=== PATIENT | male | born 1970 | race Caucasian/White ===

== ENCOUNTER → 2019-06-16 09:09 | Outpatient (CLI) | payer OTHER, SELFPAY ==
--- NOTE | 2019-06-16 | DI.RAD.S_ITS ---
PROCEDURE: FL SHOULDER INJECTION MR/CT LT INDICATIONS: Possible tear TECHNIQUE: The indications, alternatives, benefits, risks, and complications of the procedure were explained to the patient. Written informed consent was obtained and placed in the chart. The shoulder was examined fluoroscopically and a site for needle placement chosen for entry into the glenohumeral joint from an anterior approach. The skin was prepped and draped in a sterile fashion, and 1% lidocaine infiltrated from skin down to joint capsule. A spinal needle was inserted into the glenohumeral joint, and a small amount of iodinated contrast media injected to confirm intra-articular placement of the needle tip. This was followed by approximately 10 mL dilute solution of a gadolinium containing MR contrast agent. The needle was removed and a dressing was applied. The patient was given postprocedural instructions and sent to the MR suite for MR imaging. FINDINGS: A single fluoroscopic spot image demonstrates intra-articular location of injected iodinated contrast. IMPRESSION: Successful fluoroscopically guided administration of dilute Gadolinium solution into the left shoulder joint for MR arthrogram. Dictated by: Raman Stahl M.D. on 06/16/2019 at 13:35 Approved by: Raman Stahl M.D. on 06/16/2019 at 13:36
--- NOTE | 2019-06-16 | DI.MRI.S_ITS ---
PROCEDURE: MR SHOULDER LT W CON INDICATIONS: Possible tear TECHNIQUE: After the administration of 12 mL of dilute intra-articular Gadolinium contrast, oblique coronal T1 and T2 spin echo with fat saturation, oblique sagittal T1 spin echo with and without fat saturation, oblique sagittal T2 fast spin echo with fat saturation, axial T1 spin echo with fat saturation through the shoulder. COMPARISON: None. FINDINGS: Image quality: Excellent. Rotator cuff: Tendinosis and low to moderately articular and bursal surface partial-thickness tear involving distal supraspinatus at its insertion the humeral head is seen extending to musculotendinous junction. Distal infraspinatus tendinosis and low-grade articular surface partial-thickness tear is also noted. Distal subscapularis tendon is intact. No rotator cuff muscle atrophy on sagittal images. Bones and bursae: No bone marrow contusions or fractures. [id number] acromioclavicular joint osteoarthritic changes are seen.. Capsule and soft tissues: There is contrast extension and a normal contour involving the superior anterior labrum at 12 to 1:00 position consistent with focal superior anterior labral tear. The glenohumeral ligaments appear intact. The long head of the biceps tendon demonstrates normal location and morphology. The rotator interval appears normal, without fibrosis. The coracohumeral ligament is of normal thickness. No intra-articular bodies. IMPRESSION: 1. A focal superior anterior labral tear at 12 to 1:00 position. 2. Tendinosis and low to moderate grade articular and bursal surface partial-thickness tear involving distal supraspinatus extending to musculotendinous junction. Tendinosis and low-grade articular surface partial-thickness tear involving the supraspinatus. 3. Mild to moderate acromioclavicular joint osteoarthritis. Dictated by: Mir Cordero M.D. on 06/16/2019 at 13:09 Approved by: Mir Cordero M.D. on 06/16/2019 at 13:13
== END ==
PROVIDERS: PCP Student in an Organized Health Care Education/Training Program; Visit Provider Student in an Organized Health Care Education/Training Program
DX: M75.112 Incomplete rotator cuff tear or rupture of left shoulder, not specified as traumatic (principal); S43.432A Superior glenoid labrum lesion of left shoulder, initial encounter; M19.012 Primary osteoarthritis, left shoulder
CPT/HCPCS: 23350; 73222; 77002

== ENCOUNTER → 2021-05-31 10:59 | Outpatient (CLI) | payer OTHER, SELFPAY ==
--- NOTE | 2021-05-31 | DI.RAD.S_ITS ---
PROCEDURE: XR KUB INDICATIONS: Obstructive and reflux uropathy, unspecified TECHNIQUE: One view of the abdomen acquired. COMPARISON: None. FINDINGS: Surgical changes and devices: None. Bowel: Bowel gas pattern is nonspecific Soft tissues: Multiple small calcifications project over the lower pelvis which have imaging characteristics most suggestive of phleboliths, however superimposed renal stone cannot be excluded by plain film radiograph. Visualized solid organ contours appear normal in size. Bones: No suspicious bony lesions. IMPRESSION: Multiple lower pelvic phleboliths. Superimposed renal stone cannot be excluded by plain film radiograph. If there is continued clinical concern for renal stone with urinary obstruction, CT KUB should be considered for additional evaluation. Dictated by: Tara Araujo MD, PhD on 05/31/2021 at 16:30 Approved by: Tara Araujo MD, PhD on 05/31/2021 at 16:53
== END ==
PROVIDERS: PCP Student in an Organized Health Care Education/Training Program; Referring Provider Student in an Organized Health Care Education/Training Program; Visit Provider Student in an Organized Health Care Education/Training Program
DX: N13.9 Obstructive and reflux uropathy, unspecified (principal); N20.0 Calculus of kidney
CPT/HCPCS: 74018

== ENCOUNTER → 2021-07-12 14:22 | Outpatient (CLI) | payer OTHER, SELFPAY ==
[2021-07-12 15:10] LABS: Blood Urea Nitrogen 11 mg/dL (9-20); Carbon Dioxide 27 mmol/L (22-32); Chloride 104 mmol/L (98-107); Estimated Glomerular Filt Rate > 60.0 mL/min (>60); Glucose 90 mg/dL (70-100); HEMOLYSIS 31 (0-50); Potassium 3.6 mmol/L (3.4-5.1); Sodium 138 mmol/L (137-145)
[2021-07-12 15:30] LABS: COVID19 -Nasal RAPID Negative (Negative)
== END ==
PROVIDERS: PCP Student in an Organized Health Care Education/Training Program; Referring Provider Specialist; Visit Provider Specialist
DX: R79.89 Other specified abnormal findings of blood chemistry (principal); Z20.822 Contact with and (suspected) exposure to COVID-19; N20.1 Calculus of ureter; N23 Unspecified renal colic; N17.9 Acute kidney failure, unspecified; Z68.34 Body mass index [BMI] 34.0-34.9, adult
CPT/HCPCS: 36415; 80048; 81002; 87635

== ENCOUNTER → 2021-07-15 06:30 | Day surgery (SDC) | payer OTHER, SELFPAY ==
[2021-07-13 15:17] VITALS: BMI 34.2
== END | disposition home or self-care (01) ==
LOC: OR 06:31
PROVIDERS: PCP Student in an Organized Health Care Education/Training Program; Referring Provider Specialist; Visit Provider Specialist

== ENCOUNTER 2021-07-15 07:10 | Emergency (ER) | payer OTHER, SELFPAY ==
--- NOTE | 2021-07-15 07:13 | DI.CT.S_ITS ---
PROCEDURE: CT KIDNEY URETER BLADDER (KUB) INDICATIONS: eval for distal ureteral stone TECHNIQUE: Axial sections were acquired from the lung bases to the pubic symphysis. Coronal and sagittal reformats were performed. For radiation dose reduction, the following was used: automated exposure control, adjustment of mA and/or kV according to patient size. COMPARISON: Outside Facility, , CT ABDOMEN/PELVIS WITH CONTRAST, 07/07/2021, 8:24. FINDINGS: Image quality: Excellent. Lung bases: Unremarkable. Heart: No significant findings. URINARY: Right Kidney: Paintbrush calyceal calcifications consistent with renal tubular acidosis. No hydronephrosis. Right Ureter: No hydroureter. Left Kidney: Paintbrush calyceal calcifications consistent with renal tubular acidosis. No hydronephrosis. Left Ureter: Passage of recent distal left ureteral stone. No hydroureter. Bladder: Mild wall thickening. Fatty change in the muscle suggest chronic inflammation. ABDOMEN: Liver: Moderate diffuse hepatic steatosis. Gallbladder: Unremarkable. Biliary ducts: Unremarkable. Pancreas: Unremarkable. Spleen: Unremarkable. Adrenal Glands: Unremarkable. Stomach and Bowel: Stomach, small bowel loops, and colon are unremarkable. Peritoneum: No abnormal intraperitoneal fluid. No free air. Ventral Wall: No hernia. Abdominal Nodes: No enlarged retroperitoneal or mesenteric lymph nodes. Vessels: Aorta and inferior vena cava are normal in size. PELVIS: Pelvic Organs: Unremarkable. Pelvic Nodes: Unremarkable. Miscellaneous: Small fat containing left inguinal hernia. Bones: Unremarkable. IMPRESSION: 1. Interval passage of distal left ureteral stone. 2. No ureteral stones. No hydronephrosis. 3. Findings consistent with renal tubular acidosis. 4. Moderate hepatic steatosis. Dictated by: Owen Finch M.D. on 07/15/2021 at 7:54 Approved by: Owen Finch M.D. on 07/15/2021 at 8:03
[2021-07-15 07:21] VITALS: BP 137/91; PULSE 79; RESP 16; TEMP 36.7; O2SAT 97; BMI 35.2
--- NOTE | 2021-07-15 07:27 | ED.GENADULT ---
HPI - General Adult General Chief complaint: Urogenital-Male Stated complaint: CT KUB per Dr. Aguillon Time Seen by Provider: 07/15/21 07:13 Source: patient Mode of arrival: Family Vehicle Limitations: no limitations History of Present Illness HPI narrative: Patient is a 50-year-old male. Approximately 1 week ago was seen in outside facility was diagnosed with a left-sided ureteral stone. Was scheduled to have procedure this morning by Urology here at this facility to have the stone removed. Prior to the procedure he made comments to the urologist that he thinks that he has potentially passed the stone however still having some discomfort. Urologist would like the patient to come to the emergency department for a CT scan to confirm presence of the stone before proceeding with any urologic procedures. Patient states that he is still having some discomfort on the left side of his abdomen. Related Data Home Medications Medication Instructions Recorded Confirmed No Known Home Medications 07/11/21 07/13/21 Allergies Allergy/AdvReac Type Severity Reaction Status Date / Time No Known Drug Allergies Allergy Verified 07/14/21 16:18 Review of Systems Constitutional Constitutional: Denies fever(s) Gastrointestinal Gastrointestinal: Reports as per HPI and Reports system reviewed and no additional complaints, except as documented Genitourinary Genitourinary: Reports system reviewed and no additional complaints, except as documented and Reports as per HPI Musculoskeletal Musculoskeletal: Reports system reviewed and no additional complaints, except as documented Hematologic/Lymphatic On Anticoagulants: No Patient History Medical History Acute kidney injury History of kidney stones Left ureteral calculus Renal colic on left side Ureterolithiasis Family History Father Diabetes mellitus Cancer Mother Cancer Social History Smoking Status: Never smoker alcohol intake: current substance use type: does not use Smoking Status: Never smoker Exam Initial Vital Signs Initial Vital Signs: Vital Signs Temperature 98.1 F 07/15/21 07:21 Pulse Rate 79 07/15/21 07:21 Respiratory Rate 16 07/15/21 07:21 Blood Pressure 137/91 H 07/15/21 07:21 Pulse Oximetry 97 07/15/21 07:21 HENMT Head: normal to inspection and normocephalic Resp Effort & Inspection: normal respiratory effort Cardio Rate: regular rate GI Palpation: soft, No firm and tender (Left side abdomen) Skin General: no rashes or lesions noted Extrem General: normal to inspection and capillary refill normal Psych Appearance: grossly normal and well kempt Course Orders Ordered: ED Orders 07/15/21 07:13 CT kidney ureter bladder (KUB) Stat Vital Signs Vital signs: Vital Signs - 8 hr 07/15/21 07:21 Temperature 98.1 F Pulse Rate 79 Respiratory Rate 16 Blood Pressure 137/91 H Pulse Oximetry 97 Medical Decision Making Imaging Data CT scan - abdomen/pelvis: Radiologist's Impression: [address] [address] [address] Scan Report Signed Patient: Vera Vogel MR#: [id number] : 1970 Acct:[id number] Age/Sex: 50 / M Date of Service: 07/15/21 Loc: ED Accession Number: [id number] ?? Procedure: CT kidney ureter bladder (KUB) Ordering Provider: Stephen Patel D.O. PROCEDURE:? CT KIDNEY URETER BLADDER (KUB) ? INDICATIONS:? eval for distal ureteral stone ? TECHNIQUE:? Axial sections were acquired from the lung bases to the pubic symphysis.? Coronal and sagittal reformats were performed.? For radiation dose reduction, the following was used: ?automated exposure control, adjustment of mA and/or kV according to patient size.? ? COMPARISON:? Outside Facility, , CT ABDOMEN/PELVIS WITH CONTRAST, 07/07/2021, 8:24. ? FINDINGS:? Image quality:? Excellent.? ? Lung bases:? Unremarkable.? ? Heart:? No significant findings. ? URINARY: Right Kidney:? Paintbrush calyceal calcifications? consistent with renal tubular acidosis.? No hydronephrosis. Right Ureter:? No hydroureter.? ? Left Kidney:? Paintbrush calyceal calcifications consistent with renal tubular acidosis.? No hydronephrosis. Left Ureter:? Passage of recent distal left ureteral stone.? No hydroureter.? ? Bladder:? Mild wall thickening.? Fatty change in the muscle suggest chronic inflammation. ? ABDOMEN: Liver:? Moderate diffuse hepatic steatosis. Gallbladder:? Unremarkable.? ? Biliary ducts:? Unremarkable.? ? Pancreas:? Unremarkable.? ? Spleen:? Unremarkable.? ? Adrenal Glands:? Unremarkable.? ? ? Stomach and Bowel:? Stomach, small bowel loops, and colon are unremarkable.? Peritoneum:? No abnormal intraperitoneal fluid.? No free air.? ? Ventral Wall: ? No hernia.? Abdominal Nodes:? No enlarged retroperitoneal or mesenteric lymph nodes.? Vessels:? Aorta and inferior vena cava are normal in size.? ? PELVIS: Pelvic Organs:? Unremarkable.? ? Pelvic Nodes: Unremarkable. Miscellaneous:? Small fat containing left inguinal hernia. ? Bones:? Unremarkable. ? IMPRESSION:? ? 1.? Interval passage of distal left ureteral stone. ? 2. No ureteral stones.? No hydronephrosis. ? 3. Findings consistent with renal tubular acidosis. ? 4. Moderate hepatic steatosis.? Dictated by: Owen Finch M.D. on 07/15/2021 at 7:54 ? ? Approved by: Owen Finch M.D. on 07/15/2021 at 8:03?? MDM Narrative Medical decision making narrative: Patient does have some left lower quadrant abdominal discomfort. The CT scan today shows no signs of stones in his urinary system. There are some findings consistent with acute tubular acidosis on the CT scan. This does predispose him to forming stones. His current episode is the 1st time he has ever had stones. He is otherwise nontoxic. I did discuss the case with Dr. Aguillon who is the patient's urologist to sent him here to the emergency department. He does not need any procedures today since he has passed the stone. He is okay to return to work at full duty. He will stop the medications that were prescribed to him at the prior emergency department visit. He will follow-up with Dr. Aguillon to discuss the other findings on the CT scan. All of this was informed to the patient. He expressed understanding and agreement. Discharge Plan Departure Patient Disposition: Home Clinical Impression: Renal tubular acidosis Activity Restrictions/Additional Instructions: The CT scan today shows that you have passed all of the stones in your urinary system. You do not need to have any procedures performed today. Dr. Aguillon would like you to follow-up with his office. Your free to return to work at full duty. Return to the emergency department for any new or worsening symptoms. You can stop all of the medications our prescribed to you at your last emergency department visit. Prescriptions: No Action No Known Home Medications 0RF Referrals: Sheri Silva MD [Primary Care Provider] - Miranda Aguillon MD [Physician] - Stand Alone Forms: Work Release Note
== END 2021-07-15 08:41 | disposition home or self-care (01) ==
PROVIDERS: Emergency Provider Emergency Medicine; PCP Student in an Organized Health Care Education/Training Program
DX: N25.89 Other disorders resulting from impaired renal tubular function (principal)
CPT/HCPCS: 74176; 99281; 99284

== ENCOUNTER → 2021-11-07 09:22 | Outpatient (CLI) | payer OTHER, SELFPAY ==
[2021-11-07 13:25] LABS: COVID19 -Nasal RAPID Negative (Negative)
== END ==
PROVIDERS: PCP Student in an Organized Health Care Education/Training Program; Visit Provider Family Medicine Sleep Medicine
DX: Z20.822 Contact with and (suspected) exposure to COVID-19 (principal)
CPT/HCPCS: 87635; C9803

== ENCOUNTER 2021-11-08 12:44 | Day surgery (SDC) | payer OTHER, SELFPAY ==
[2021-11-08] VITALS (7 sets, daily range): BP systolic 119–142; BP diastolic 80–92; PULSE 83–97; RESP 15–20; TEMP 35.9–36.2; O2SAT 94–97
--- NOTE | 2021-11-08 11:51 | PM.PREOP ---
Pre-operative Note COVID-19 COVID-19 status: Negative Result date/Date tested (Pos, Neg/Pending): 11/07/21 Interval Note History & Physical reviewed/Exam performed by Physician: Yes Changes to H&P: No ASA Class (for procedural sedation): I
--- NOTE | 2021-11-08 11:52 | PM.OP.COLON ---
Operative Date/Time/Diagnoses Date of procedure: 11/08/21 Procedure Notes SCOAP/Timeout: 1:46 p.m. Procedure in detail: ENDOSCOPIST: Sheri Silva MD Sedation RN: Anai Posadas RN Sedation start time: 3:47 p.m. Sedation end time: 2:05 p.m. PROCEDURE: Colonoscopy INDICATIONS: 1. Screening for colon cancer MEDICATION: Levsin 0.125 mg sublingual, incremental doses of Versed and fentanyl until appropriate level sedation achieved. ASA CLASS: 1 CECAL WITHDRAWAL TIME: 6 minutes COMPLICATIONS: None. EXTENT OF PROCEDURE: Cecum. QUALITY OF PREP: Good with portions of liquid stool. PROCEDURE: Prior to insertion of the colonoscope, a digital rectal examination was accomplished with circumferential palpation of the distal rectal mucosa without significant findings being noted. The high-definition colonoscope was passed into the rectum in the usual fashion and advanced over to the cecum without difficulty. The ileocecal valve, appendiceal stoma, and medial wall all could be inspected and no abnormalities were seen. ASCENDING COLON: As the colonoscope was withdrawn, care was taken to expose and inspect the haustral folds and no abnormalities were seen. HEPATIC FLEXURE: Normal, no polyps, diverticula or other abnormalities. TRANSVERSE COLON: Normal, no polyps, diverticula or other abnormalities. DESCENDING COLON: Normal, no polyps, diverticula or other abnormalities. SIGMOID COLON: Normal, no polyps, diverticula or other abnormalities. RECTUM: Normal. J maneuver was produced. There was no significant perianal disease. The J maneuver was broken. The remainder of the rectum was inspected and there was minor external hemorrhoid disease. The scope was withdrawn. IMPRESSION: 1. Normal colonoscopy 2. External hemorrhoid disease, minor PLAN: 1. Repeat colonoscopy in 10 years. The possibility of a missed lesion including a malignancy has been discussed with the patient previously. Potential alarm symptoms have been discussed and should be reported immediately.
[2021-11-08] MEDS: HYOSCYAMINE 0.125 MG TABLET PO (12:58)
[2021-11-08] MEDS: LACTATED RINGERS 1,000 ML 200 ML IV (13:09)
[2021-11-08] MEDS: MIDAZOLAM 5 MG/5 ML VIAL 9 MG IV (13:47)
[2021-11-08] MEDS: fentaNYL 250 MCG/5 ML INJ 200 MCG IV (13:47)
== END 2021-11-08 14:38 | disposition home or self-care (01) ==
PROVIDERS: PCP Student in an Organized Health Care Education/Training Program; Referring Provider Student in an Organized Health Care Education/Training Program; Visit Provider Student in an Organized Health Care Education/Training Program
PROC: 0DJD8ZZ Inspection of Lower Intestinal Tract, Via Natural or Artificial Opening Endoscopic (ICD-10-PCS; CPT 45378; principal; 2021-11-08 13:45)
DX: Z12.11 Encounter for screening for malignant neoplasm of colon (principal); K64.4 Residual hemorrhoidal skin tags
CPT/HCPCS: 45378; J2250; J3010